=== PATIENT | male | born 1955 | race Caucasian/White ===

== ENCOUNTER 2017-03-09 07:25 | Inpatient (IN) | payer BC, OTHER ==
--- NOTE | 2017-02-24 12:38 | PAT Medication Instructions ---
Service Date Feb 24, 2017. Current Home Medication List Ergocalciferol (Vitamin D), 50,000 UNITS PO WK Fish Oil ([place]-3), 1 CAP PO QAM Olmesartan/Hctz (Benicar Hct 20/12.5), 1 TAB PO QAM Oyster Shell (Calcium), 1,000 MG PEG QAM Tamsulosin HCl (Tamsulosin HCl), 0.4 MG PO QAM Testosterone Cypionate (Testosterone Cypionate), 1 ML INJ [id number] Medication Instructions For Your Scheduled Surgery - Continue as directed: Ergocalciferol (Vitamin D), 50,000 UNITS PO WK Testosterone Cypionate (Testosterone Cypionate), 1 ML INJ [id number] - Hold the following medications starting 02/25/17: Fish Oil ([place]-3), 1 CAP PO QAM - Hold the following medications the morning of surgery: Tamsulosin HCl (Tamsulosin HCl), 0.4 MG PO QAM Olmesartan/Hctz (Benicar Hct 20/12.5), 1 TAB PO QAM Oyster Shell (Calcium), 1,000 MG PEG QAM If you have any questions please call us at [phone] or [phone] or [phone]
[2017-02-24 12:48] LABS: BASO % 0.5 %; BASO ABS # 0.03 K/uL (0-0.2); COMPLETE YES; EOS % 1.8 %; HEMATOCRIT 49.6 % (42-52); IG% 0.3 %; LYMPH % 26.7 %; LYMPH ABS # 1.63 K/uL (1.2-3.4); MEAN CORPUSCULAR HEMOGLOBIN 31.2 pg (25-34); MEAN CORPUSCULAR HGB CONC 35.1 g/dl (32-36); MEAN PLATELET VOLUME 10.4 fL (7.4-10.4); MONO % 7.5 %; NEUT % 63.2 %; PLATELET COUNT 180 K/uL (130-400); RED BLOOD COUNT 5.57 M/uL (4.7-6.1); WHITE BLOOD COUNT 6.11 K/uL (4.8-10.8)
[2017-02-24 13:03] LABS: URINE APPEARANCE CLEAR (CLEAR); URINE BILIRUBIN NEG (NEG); URINE COLOR YELLOW; URINE NITRITE NEG (NEG); URINE SPECIFIC GRAVITY 1.024 (1.000-1.030); UROBILINOGEN NEG (NEG)
--- NOTE | 2017-02-24 13:06 | DIAGNOSTIC IMAGING REPORT ---
CHEST 2 VIEWS ROUTINE HISTORY: Preop. COMPARISON: Chest 07/14/2014. FINDINGS: The lungs are clear. Cardiac silhouette is normal in size. No pleural effusions. No pneumothorax. IMPRESSION: No acute process. Electronically signed by: Marek Miguel M.D. 02/24/2017 1:05 PM Dictated Date/Time: 02/24/2017 1:03 PM
[2017-02-24 13:07] LABS: MANUAL MICROSCOPIC REQUIRED? NO; REVIEW REQ? NO
[2017-02-24 13:28] LABS: BUN/CREATININE RATIO 18.1 (10-20); CALCIUM 8.8 mg/dl (8.5-10.1); CREATININE 1.1 mg/dl (0.60-1.40); POTASSIUM 4.2 mmol/L (3.5-5.1)
[2017-03-09] VITALS (10 sets, daily range): BP systolic 106–154; BP diastolic 63–96; PULSE 63–98; TEMP 36.5–36.8; O2SAT 90–97; Ht 175.3 cm; Wt 90.5 kg
[~2017-03-09] VITALS: Ht 175.3 cm; Wt 90.5 kg
[~2017-03-09 07:25] MED LIST: BNC/20125 PO; CEFAZOLIN 2000 MG/60 ML D5W IV SCH; CeleBREX 200 MG CAP PO SCH; DUTA1CAP3 PO; FLM4 PO; LACTATED RINGER'S 1000ML 1,000 ML IV SCH; OMEG10007 PO; OYST500T47 PEG; PREGABALIN 75 MG CAP PO SCH; TEST1INJ2 INJ; VTMD PO
[2017-03-09] MEDS ORDERED: MIDAZOLAM HCL 1 MG/ML 2ML VIAL ONE (09:18)
[2017-03-09] MEDS ORDERED: FENTANYL CITRATE INJ 50 MCG/1 ML 2 ML VIAL ONE ×2 (09:19→10:25)
--- NOTE | 2017-03-09 09:44 | History & Physical Bridge Note ---
H&P Re-Evaluation Bridge Note: I have examined the patient, reviewed the History & Physical and in the interval since the performance of the History & Physical I have noted the following changes of clinical significance: No changes noted
[2017-03-09] MEDS ORDERED: THROMBIN FOR SOLN 20000 UNIT KIT ONE (09:46)
[2017-03-09] MEDS ORDERED: THROMBIN 5000 UNITS KIT ONE (09:46)
[2017-03-09] MEDS ORDERED: BACITRACIN 50000 UNIT VIAL ONE (09:46)
[2017-03-09] MEDS ORDERED: HEPARIN SOD (PORCINE) 1000 UNIT/ML 10 ML VIAL ONE ×2 (09:46→09:48)
[2017-03-09] MEDS ORDERED: BUPIVACAINE/EPINEPHRINE 0.5% MPF 1:200,000 10 ML VIAL ONE ×2 (09:48→09:50)
[2017-03-09] MEDS ORDERED: HYDROmorphone INJ 2 MG/ML SYR/VIAL ONE ×2 (10:25→11:27)
[2017-03-09] MEDS ORDERED: LABETALOL HCL IV 5 MG/ML 20ML IV PRN (10:45)
[2017-03-09] MEDS ORDERED: ONDANSETRON INJ 2 MG/ML 2 ML VIAL IV PRN ×2 (10:45→11:45)
[2017-03-09] MEDS ORDERED: HYDROmorphone INJ 2 MG/ML SYR/VIAL IV PRN (10:45)
[2017-03-09] MEDS ORDERED: ATROPINE SULFATE 0.1 MG/ML 5ML SYR IV PRN (10:45)
[2017-03-09] MEDS ORDERED: NEOSTIGMINE METHYLSULFATE 1 MG/ML 10ML VIAL ONE (11:27)
[2017-03-09] MEDS ORDERED: DEXAMETHASONE SOD INJ 4 MG/ML VIAL ONE (11:27)
[2017-03-09] MEDS ORDERED: GLYCOPYRROLATE INJ 0.2 MG/ML VIAL ONE (11:27)
[2017-03-09] MEDS ORDERED: ONDANSETRON INJ 2 MG/ML 2 ML VIAL ONE ×2 (11:27)
[2017-03-09] MEDS ORDERED: PROPOFOL IV EMULSION 10 MG/ML 20 ML VIAL IV ONE (11:27)
[2017-03-09] MEDS ORDERED: LIDOCAINE HCL 2% 2 ML VIAL (20MG/ML) ONE (11:27)
[2017-03-09] MEDS ORDERED: ROCURONIUM BROMIDE 10 MG/ML 5 ML VIAL ONE (11:27)
[2017-03-09] MEDS ORDERED: PHENYLEPHRINE 100MCG/ML 5ML SYR ONE (11:27)
[2017-03-09] MEDS ORDERED: KETOROLAC TROMETHAMINE 30 MG/ML VIAL ONE (11:28)
--- NOTE | 2017-03-09 11:30 | [facility] Post Operative Brief Note ---
Immediate Operative Summary Operative Date Mar 09, 2017. Pre-Operative Diagnosis lumbar stenosis Post-Operative Diagnosis same Procedure(s) Performed Removal of hardware L3; L2-L3 Decompression and Instrumented Fusion, connection at L3; Arteriocyte; Application of Bone Morphogenic Protein Surgeon Dr. Greenwood Branch Billing Payroll Clerk Surgeon(s) Von Mathur PA-C Estimated Blood Loss 300 ml Findings dict Specimens a. explanted hardware
[2017-03-09] MEDS ORDERED: SODIUM CHLORIDE 0.9% 1000ML 1,000 ML IV SCH (11:35)
--- NOTE | 2017-03-09 11:35 | [facility] Operative Report ---
Operative Report Operative Date Mar 09, 2017. Pre-Operative Diagnosis lumbar stenosis Post-Operative Diagnosis same Procedure(s) Performed 1. L2 laminectomy 2. L2 bilateral pedicle screw instrumentation with K2M EVEREST screws and cee application L2-3 bilateral 3. Posterolateral fusion L2-3 bilateral with INFUSE, BMA, local bone 4. Left iliac crest bone marrow aspiration 5. exploration of fusion mass bilateral L3-[address] Greenwood Automobile Relocation Engineer Surgeon(s) Von Mathur PA-C Estimated Blood Loss 300 ml Findings see below Specimens a. explanted hardware Anesthesia GETA Description of Procedure After identification of the patient and the operative level they were brought to the OR where they underwent induction of general anesthesia. They were positioned prone on a Michael spine table with all bony prominence well-padded. Care was taken to avoid pressure on the periorbital area. The lumbosacral area was sterilely prepped and draped in the usual fashion. Antibiotics were administered, a time-out was performed, level was confirmed, and skin incision was with localized lateral fluoroscopy and a spinal needle. The skin was infiltrated with half percent Marcaine with epinephrine. I then made skin incision from the spinous process of L2-4. The dorsal fascia was incised and posterior exposure was accomplished with dissection out to the tips of the transverse processes from L2-3 bilaterally. I then packed the gutters with thrombin-soaked sponges and used fluoroscopy to confirm the operative levels with markers at the operative levels. After identification of the appropriate level I placed Gelpi retractors and proceeded to perform midline decompression. Laminectomies of L2 were performed in the midline with takedown of the intervening ligamentum flavum. I then used an osteotome to remove the medial facets at L2-3. Facet hypertrophy and degenerative changes were noted at the operative levels. I then completed decompression with Kerrison rongeurs and palpated the nerve roots were adequately decompressed at the operative levels from L2-3 bilaterally. I palpated all nerve roots were decompressed adequately. I then obtained hemostasis of epidural bleeding with bipolar cautery and Surgiflo. I then proceeded to place pedicle screws bilaterally at L2 with bony anatomy confirmed to be intact with the ball-tipped feeler. I confirmed screw length, trajectory, and position with fluoroscopy. Bone graft consisted of morselized local bone from laminectomy bone as well as bone graft foreign language interpreter saturated with stem cell concentrate. I obtained stem cell concentrate using a stem cell concentration system after aspiration of bone marrow from the right iliac crest via a separate stab incisions with a Jamshidi needle. I then applied this to bone graft foreign language interpreter. I then lowered the Kilo frame to restore lordosis. I explored fusion and hardware bilaterally at L3-4 and confirmed fusion. I then removed the L3 medicrea screws on both sides then put connectors on rods bilaterally I then applied rods and end caps bilaterally with final tightening of all caps. I irrigated with bacitracin solution. I then decorticated the transverse processes bilaterally at the operative levels from L2-3 as well as facet joints with a high-speed bur. I then packed the lateral gutters and facets with the bone graft mixture consisting of: infuse BMP and a collagen sponge, tricalcium phosphate logs, stem cell concentrate, morcellized local bone, and bone graft foreign language interpreter. I then confirmed hemostasis and closed in a layered fashion over a RENARD drain. All sponge and needle counts were correct in the case. Please note my PA-C participated in all portions of the procedure and was critical for performance of the procedure by assisting in positioning, prepping, draping, suction, retraction, and wound closure. I attest to the content of the Intraoperative Record and any orders documented therein. Any exceptions are noted below.
--- NOTE | 2017-03-09 11:44 | DIAGNOSTIC IMAGING REPORT ---
Lumbar spine LUMBAR SPINE 2 OR 3 VIEW CLINICAL HISTORY: LUMBAR DECOMPRESSION/ FUSION POSSIBLE REMOVAL TECHNIQUE: Image intensifier COMPARISON STUDY: None FINDINGS: Image intensifier utilized for lumbar fusion/ReVision process IMPRESSION: Image intensifier utilized for lumbar fusion/ReVision procedure Electronically signed by: Ernesto Aquino M.D. 03/09/2017 11:43 AM Dictated Date/Time: 03/09/2017 11:42 AM
[2017-03-09] MEDS ORDERED: HYDROmorphone HCL 0.5MG/ML 50 ML CASSETTE IV PRN (11:45)
[2017-03-09] MEDS ORDERED: LORAZEPAM 0.5 MG TAB PO PRN (11:45)
[2017-03-09] MEDS ORDERED: PROMETHAZINE HCL INJ 12.5 MG in SODIUM CHLORIDE 0.9% 50ML 50 ML IV PRN (11:45)
[2017-03-09] MEDS ORDERED: MAGNESIUM HYDROXIDE SUSP 30 ML UDC PO PRN (11:45)
[2017-03-09] MEDS ORDERED: NALOXONE HCL 0.4 MG/1 ML VIAL/CARP IV PRN ×2 (11:45)
[2017-03-09] MEDS ORDERED: ACETAMINOPHEN 500 MG TAB PO PRN (11:45)
[2017-03-09] MEDS ORDERED: BISACODYL 10 MG SUPP PR PRN (11:45)
[2017-03-09] MEDS ORDERED: SOD PHOSPHATE/SOD BIPHOSPHATE ENEMA 132 ML BTL PR PRN (11:45)
[2017-03-09] MEDS ORDERED: FAMOTIDINE 20 MG TAB PO PRN (11:45)
[2017-03-09] MEDS ORDERED: ACETAMINOPHEN IV 100 ML IV PRN (11:45)
[2017-03-09] MEDS ORDERED: LORAZEPAM INJ 0.5 MG in SYRINGE 0 ML IV PRN (11:45)
[2017-03-09] MEDS ORDERED: hydrOXYzine HCL 25 MG TAB PO PRN (11:45)
[2017-03-09] MEDS ORDERED: METOCLOPRAMIDE HCL INJ 5 MG/ML 2 ML VIAL IV PRN (11:45)
[2017-03-09] MEDS ORDERED: ALUMINUM/MAGNESIUM SUSP 30 ML UDC PO PRN (11:45)
[2017-03-09] MEDS ORDERED: HYDROmorphone INJ 1 MG/ML SYR ONE ×2 (11:55→12:19)
[2017-03-09] MEDS ORDERED: HYDROmorphone HCL 0.5MG/ML 50 ML CASSETTE ONE (11:55)
[2017-03-09] MEDS ORDERED: ESMOLOL HCL 10 MG/ML 10 ML VIAL ONE (12:24)
[2017-03-09] MEDS: SODIUM CHLORIDE 0.9% 1000ML 1,000 ML IV SCH (15:01)
--- NOTE | 2017-03-09 15:08 | Anesthesiology Progress Note ---
Anesthesia Post Op Note Date & Time Mar 09, 2017 at 15:08 Vital Signs Pain Intensity: 4.0 Vital Signs Past 12 Hours Date Time Temp Pulse Resp B/P (MAP) Pulse Ox O2 Delivery O2 Flow Rate FiO2 03/09/17 14:43 36.6 98 18 149/81 (103) 94 Nasal Cannula 4.0 03/09/17 14:15 36.6 71 17 154/89 (110) 94 Nasal Cannula 4.0 03/09/17 13:57 95 Nasal Cannula 4.0 03/09/17 13:47 95 Nasal Cannula 4.0 03/09/17 13:44 36.7 87 16 146/78 (100) 95 Nasal Cannula 4.0 03/09/17 13:31 37.5 03/09/17 13:28 63 16 92 03/09/17 13:28 66 16 03/09/17 13:26 123/76 03/09/17 13:23 82 16 93 03/09/17 13:23 80 16 03/09/17 13:22 36.7 03/09/17 13:21 134/77 03/09/17 13:18 90 12 96 03/09/17 13:18 82 12 03/09/17 13:17 74 16 03/09/17 13:17 80 16 93 03/09/17 13:16 129/86 03/09/17 13:12 75 13 03/09/17 13:12 78 13 92 03/09/17 13:11 136/87 03/09/17 13:07 57 16 94 03/09/17 13:07 58 16 03/09/17 13:06 121/68 03/09/17 13:02 61 16 03/09/17 13:02 62 16 94 03/09/17 13:01 119/65 03/09/17 12:57 65 13 03/09/17 12:57 67 13 90 03/09/17 12:56 121/68 03/09/17 12:52 78 12 03/09/17 12:52 78 12 94 03/09/17 12:51 127/68 03/09/17 12:47 53 16 95 03/09/17 12:47 53 16 03/09/17 12:46 120/63 03/09/17 12:42 70 14 93 03/09/17 12:42 73 14 03/09/17 12:41 135/73 03/09/17 12:37 60 16 03/09/17 12:37 61 16 133/66 93 03/09/17 12:32 67 14 95 03/09/17 12:32 65 14 03/09/17 12:31 141/78 03/09/17 12:30 60 16 95 03/09/17 12:30 57 16 03/09/17 12:26 143/81 03/09/17 12:25 56 15 93 03/09/17 12:25 57 15 03/09/17 12:21 147/85 03/09/17 12:20 60 15 93 03/09/17 12:20 60 15 03/09/17 12:19 62 16 92 03/09/17 12:19 67 16 03/09/17 12:16 154/85 03/09/17 12:14 77 19 03/09/17 12:14 77 19 93 03/09/17 12:11 155/84 03/09/17 12:09 61 17 03/09/17 12:09 61 17 95 03/09/17 12:08 81 16 97 03/09/17 12:08 79 16 03/09/17 12:06 150/86 03/09/17 12:03 63 17 94 03/09/17 12:03 64 17 03/09/17 12:01 156/82 03/09/17 11:58 77 18 94 03/09/17 11:58 78 18 03/09/17 11:53 85 14 03/09/17 11:53 85 14 95 03/09/17 11:51 167/89 03/09/17 11:50 78 17 167/89 94 Mask 10 03/09/17 11:48 85 16 94 03/09/17 11:48 85 16 03/09/17 11:46 163/88 03/09/17 11:44 164/89 03/09/17 11:43 36.6 80 16 164/89 94 Mask 10 03/09/17 11:43 81 16 03/09/17 11:43 81 16 94 03/09/17 08:02 36.8 63 18 153/96 97 Room Air Notes Mental Status: alert / awake / arousable, participated in evaluation Pt Amnestic to Procedure: Yes Nausea / Vomiting: adequately controlled Pain: adequately controlled Airway Patency, RR, SpO2: stable & adequate BP & HR: stable & adequate Hydration State: stable & adequate Anesthetic Complications: no major complications apparent
[2017-03-09] MEDS: CEFAZOLIN IV 2,000 MG in DEXTROSE 5% 50ML 50 ML IV SCH (18:04)
[2017-03-09] MEDS: DEXAMETHASONE INJ 6 MG in SYRINGE 0 ML IV SCH (18:04)
[2017-03-09] MEDS: DOCUSATE SODIUM/SENNA 50/8.6MG TAB PO SCH (20:49)
[2017-03-10] VITALS (7 sets, daily range): BP systolic 107–146; BP diastolic 69–87; PULSE 67–97; TEMP 36.6–36.8; O2SAT 90–95
[2017-03-10] MEDS: DEXAMETHASONE INJ 6 MG in SYRINGE 0 ML IV SCH ×2 (01:31→09:55)
[2017-03-10] MEDS: CEFAZOLIN IV 2,000 MG in DEXTROSE 5% 50ML 50 ML IV SCH (01:31)
[2017-03-10] MEDS: SODIUM CHLORIDE 0.9% 1000ML 1,000 ML IV SCH ×2 (03:55→15:30)
[2017-03-10] MEDS ORDERED: DC PCA PRN (06:00)
[2017-03-10] MEDS ORDERED: HYDROmorphone INJ 0.5 MG/0.5 ML SYR IV PRN (06:00)
[2017-03-10] MEDS ORDERED: HYDROmorphone INJ 1 MG/ML SYR IV PRN (06:00)
[2017-03-10 06:58] LABS: COMPLETE YES; HEMATOCRIT 42.5 % (42-52); IG% 0.2 %; LYMPH % 6.9 %; LYMPH ABS # 0.75 K/uL (1.2-3.4); MEAN CELL VOLUME 87.8 fL (80-100); MEAN CORPUSCULAR HEMOGLOBIN 30.8 pg (25-34); MEAN CORPUSCULAR HGB CONC 35.1 g/dl (32-36); MEAN PLATELET VOLUME 10.6 fL (7.4-10.4); MONO % 1.9 %; PLATELET COUNT 148 K/uL (130-400); RED BLOOD COUNT 4.84 M/uL (4.7-6.1); WHITE BLOOD COUNT 10.92 K/uL (4.8-10.8)
[2017-03-10] MEDS ORDERED: COUGH DROP (SUGAR FREE) LOZ 24 LOZ/1 BOX ONE (07:26)
[2017-03-10 07:28] LABS: BUN/CREATININE RATIO 20.7 (10-20); CALCIUM 8.3 mg/dl (8.5-10.1); POTASSIUM 4.4 mmol/L (3.5-5.1)
[2017-03-10] MEDS ORDERED: NURSING VERBAL MED ORDER ONE (07:30)
[2017-03-10] MEDS ORDERED: COUGH DROP (SUGAR FREE) LOZ 24 LOZ/1 BOX PO PRN (07:30)
[2017-03-10] MEDS: OXYCODONE HCL IR 5 MG TAB (IMMEDIATE RELEASE) PO PRN ×3 (07:33→20:44)
[2017-03-10] MEDS: OLMESARTAN MEDOXOMIL 20 MG TAB PO SCH (07:34)
[2017-03-10] MEDS: TAMSULOSIN HCL 0.4 MG CAP PO SCH (07:35)
[2017-03-10] MEDS: HYDROCHLOROTHIAZIDE 25 MG TAB PO SCH (07:35)
--- NOTE | 2017-03-10 07:46 | Anesthesiology Progress Note ---
Anesthesia Post Op Note Date & Time Mar 10, 2017 at 07:46 Vital Signs Pain Intensity: 7.0 Vital Signs Past 12 Hours Date Time Temp Pulse Resp B/P (MAP) Pulse Ox O2 Delivery O2 Flow Rate FiO2 03/10/17 07:43 Room Air 03/10/17 07:08 36.7 80 19 146/74 (98) 92 Room Air 03/10/17 03:38 36.6 67 16 119/70 (86) 90 Room Air 03/09/17 23:36 36.6 88 20 106/63 (77) 94 Room Air Notes Mental Status: alert / awake / arousable, participated in evaluation Pt Amnestic to Procedure: Yes Nausea / Vomiting: adequately controlled Pain: adequately controlled Airway Patency, RR, SpO2: stable & adequate BP & HR: stable & adequate Hydration State: stable & adequate Anesthetic Complications: no major complications apparent
--- NOTE | 2017-03-10 08:56 | Discharge Summary ---
Orthopedic Discharge Summary Admission Date/Reason Mar 09, 2017 at 11:39 Lumbar Spinal Stenosis. Discharge Date/Disposition Mar 11, 2017 Home Diagnosis Principal Diagnosis: SAME Procedure(s) Performed LUMBAR FUSION Medication Reconciliation New Medications: Oxycodone HCl (Oxycodone HCl) 5 Mg Tab 5-10 MG PO Q4H PRN for Moderate - severe pain, #90 TAB Continued Medications: Dutasteride (Dutasteride) 0.5 Mg Cap 1 TAB PO QAM Ergocalciferol (Vitamin D) 50,000 Interunit Cap 13813 UNITS PO WK, #12 MONDAYS Fish Oil ([place]-3) 1 Ea Cap 1 CAP PO QAM, CAP Olmesartan/Hctz (Benicar Hct 20/12.5) Tab 1 TAB PO QAM, #90 Oyster Shell (Calcium) 500 Mg Tab 1000 MG PEG QAM Tamsulosin HCl (Tamsulosin HCl) 0.4 Mg Cap 0.4 MG PO QAM, #90 Testosterone Cypionate (Testosterone Cypionate) 200 Mg/Ml Inj 1 ML INJ [id number], #2 Admission Physical Exam As per Admitting History & Physical. Hospital Course The patient was admitted for elective lumbar fusion. They tolerated procedure well and were stable on the floor. They progressed with PT, had stable labs, HVC output decreased, pain was controlled, and bowel function returned. They were discharged in stable condition Discharge Instructions Please refer to the electronic Patient Visit Report (Discharge Instructions) for additional information.
--- NOTE | 2017-03-10 08:57 | Orthopedic Progress Note ---
Orthopedic Progress Note Date of Service Mar 10, 2017. Subjective Post OP Day: 1 Reports: feeling well, pain controlled w PO medications, Denies: complaints, chest pain, SOB, nausea / vomiting, light headedness, calf pain, using CNC MAINTENANCE MECHANIC Objective calves soft nontender, N/V intact, dressing C/D/I, A&O x3, hemovac drainage Date Time Temp Pulse Resp B/P (MAP) Pulse Ox O2 Delivery O2 Flow Rate FiO2 03/10/17 07:43 Room Air 03/10/17 07:08 36.7 80 19 146/74 (98) 92 Room Air 03/10/17 03:38 36.6 67 16 119/70 (86) 90 Room Air 03/09/17 23:36 36.6 88 20 106/63 (77) 94 Room Air 03/09/17 19:30 Room Air 03/09/17 19:26 36.5 67 16 133/75 (94) 90 Room Air 03/09/17 18:00 91 Nasal Cannula 2.0 03/09/17 15:50 Nasal Cannula 4.0 03/09/17 15:44 36.7 84 13 144/74 (97) 95 Nasal Cannula 4.0 03/09/17 14:43 36.6 98 18 149/81 (103) 94 Nasal Cannula 4.0 03/09/17 14:15 36.6 71 17 154/89 (110) 94 Nasal Cannula 4.0 03/09/17 13:57 95 Nasal Cannula 4.0 03/09/17 13:47 95 Nasal Cannula 4.0 03/09/17 13:44 36.7 87 16 146/78 (100) 95 Nasal Cannula 4.0 03/09/17 13:31 37.5 03/09/17 13:28 63 16 92 03/09/17 13:28 66 16 03/09/17 13:26 123/76 03/09/17 13:23 82 16 93 03/09/17 13:23 80 16 03/09/17 13:22 36.7 03/09/17 13:21 134/77 03/09/17 13:18 90 12 96 03/09/17 13:18 82 12 03/09/17 13:17 74 16 03/09/17 13:17 80 16 93 03/09/17 13:16 129/86 03/09/17 13:12 75 13 03/09/17 13:12 78 13 92 03/09/17 13:11 136/87 03/09/17 13:07 57 16 94 03/09/17 13:07 58 16 03/09/17 13:06 121/68 03/09/17 13:02 61 16 03/09/17 13:02 62 16 94 03/09/17 13:01 119/65 03/09/17 12:57 65 13 03/09/17 12:57 67 13 90 03/09/17 12:56 121/68 03/09/17 12:52 78 12 03/09/17 12:52 78 12 94 03/09/17 12:51 127/68 03/09/17 12:47 53 16 95 03/09/17 12:47 53 16 03/09/17 12:46 120/63 03/09/17 12:42 70 14 93 03/09/17 12:42 73 14 03/09/17 12:41 135/73 03/09/17 12:37 60 16 03/09/17 12:37 61 16 133/66 93 03/09/17 12:32 67 14 95 03/09/17 12:32 65 14 03/09/17 12:31 141/78 03/09/17 12:30 60 16 95 03/09/17 12:30 57 16 03/09/17 12:26 143/81 03/09/17 12:25 56 15 93 03/09/17 12:25 57 15 03/09/17 12:21 147/85 03/09/17 12:20 60 15 93 03/09/17 12:20 60 15 03/09/17 12:19 62 16 92 03/09/17 12:19 67 16 03/09/17 12:16 154/85 03/09/17 12:14 77 19 03/09/17 12:14 77 19 93 03/09/17 12:11 155/84 03/09/17 12:09 61 17 03/09/17 12:09 61 17 95 03/09/17 12:08 81 16 97 03/09/17 12:08 79 16 03/09/17 12:06 150/86 03/09/17 12:03 63 17 94 03/09/17 12:03 64 17 03/09/17 12:01 156/82 03/09/17 11:58 77 18 94 03/09/17 11:58 78 18 03/09/17 11:53 85 14 03/09/17 11:53 85 14 95 03/09/17 11:51 167/89 03/09/17 11:50 78 17 167/89 94 Mask 10 03/09/17 11:48 85 16 94 03/09/17 11:48 85 16 03/09/17 11:46 163/88 03/09/17 11:44 164/89 03/09/17 11:43 36.6 80 16 164/89 94 Mask 10 03/09/17 11:43 81 16 03/09/17 11:43 81 16 94 Laboratory Results 24 Hours: Test 03/10/17 06:02 White Blood Count 10.92 K/uL Red Blood Count 4.84 M/uL Hemoglobin 14.9 g/dL Hematocrit 42.5 % Mean Corpuscular Volume 87.8 fL Mean Corpuscular Hemoglobin 30.8 pg Mean Corpuscular Hemoglobin Concent 35.1 g/dl Platelet Count 148 K/uL Mean Platelet Volume 10.6 fL Neutrophils (%) (Auto) 91.0 % Lymphocytes (%) (Auto) 6.9 % Monocytes (%) (Auto) 1.9 % Eosinophils (%) (Auto) 0.0 % Basophils (%) (Auto) 0.0 % Neutrophils # (Auto) 9.94 K/uL Lymphocytes # (Auto) 0.75 K/uL Monocytes # (Auto) 0.21 K/uL Eosinophils # (Auto) 0.00 K/uL Basophils # (Auto) 0.00 K/uL Assessment & Plan Assessment: stable...preop symptoms improved Plan: PT, scds, drain, d/c monday?
[2017-03-10] MEDS: DOCUSATE SODIUM/SENNA 50/8.6MG TAB PO SCH (21:19)
[2017-03-11] MEDS ORDERED: NURSING DECISION MEDICATION ORDER SCH (03:45)
[2017-03-11 05:55] VITALS: BP 134/77; PULSE 58; TEMP 36.6; O2SAT 95
[2017-03-11] MEDS: POLYETHYLENE (MIRALAX) 17 GM PACK PO SCH ×2 (05:57→12:06)
[2017-03-11] MEDS: OXYCODONE HCL IR 5 MG TAB (IMMEDIATE RELEASE) PO PRN ×2 (05:58→12:09)
[2017-03-11] MEDS: HYDROCHLOROTHIAZIDE 25 MG TAB PO SCH (07:21)
[2017-03-11] MEDS: OLMESARTAN MEDOXOMIL 20 MG TAB PO SCH (07:21)
[2017-03-11] MEDS: TAMSULOSIN HCL 0.4 MG CAP PO SCH (07:22)
[2017-03-11 08:49] VITALS: BP 121/69; PULSE 70; O2SAT 94
[2017-03-11] MEDS ORDERED: RXC5 PO (11:41)
--- NOTE | 2017-03-11 11:42 | Discharge Instructions ---
Discharge Instructions Date of Service Mar 11, 2017. Admission Reason for Admission: Lumbar Spinal Stenosis Discharge Discharge Diagnosis / Problem: same Discharge Goals Goal(s): Decrease discomfort Activity Recommendations Activity Limitations: per Instructions/Follow-up section . Instructions / Follow-Up Instructions / Follow-Up ACTIVITY RECOMMENDATIONS: SELF CARE INSTRUCTIONS AFTER THORACIC/LUMBAR FUSIONS 1. You may walk to your tolerance. It is good exercise for your legs and back. Expect some back and intermittent leg aches and pains. 2. You may perform "counter-top" level activities (make a sandwich, isaura with a project, etc.). 3. No bending or lifting of more than 10 pounds or back twisting of any nature (roll like a log when turning in bed). 4. You may ride in a car for 20-30 minutes at a time. No driving until after your first visit with your doctor. 5. Frequent changes of position and restricting sitting to 30 minutes at a time will help limit the amount of back spasms and stiffness you may experience. 6. You may discontinue the use of ambulatory aids (cane, crutches, etc.) once your strength and confidence allow. 7. You may photographic engineer the shower and let water strike your incision when you arrive home at least once daily. Do not take a tub bath, sit in a hot tub or go into a swimming pool until after your first recheck in the office. SPECIAL CARE INSTRUCTIONS: VERY IMPORTANT TO READ AND REVIEW 2. You may keep the wound open to air as much as possible to promote healing after post-op day number 5 unless told otherwise by your doctor. 3. If you think the wound looks like it is becoming infected (redness or worsening drainage) and/or you are experiencing fever, chill or worsening back pain and muscle spasms, contact the office so that we may evaluate you as soon as possible. B. Complications are uncommon, but please contact us if you have any signs or symptoms of: 1. wound infection (fever higher than 102.5 degrees F, redness, separation of wound, drainage, or increasing pain from the incision) 2. blood clots in legs (pain, swelling, redness and warmth in legs) 3. urinary tract infection (fever higher than 102.5 degrees F, burning upon urination or increased frequency of urination) 4. nerve problems (inability to walk on your toes or heels, numbness, loss of bowel or bladder control) 5. any other symptoms that concern you C. Please call the office at if you have any concerns or questions about your operation or recovery. D. No smoking! Smoking drastically decreases the chance of a solid fusion. MANAGING PAIN AFTER SPINAL SURGERY 1. Narcotic medication is intended for short-term use and will be provided for surgical pain. Surgical pain usually lasts for a period of 4-6 weeks. Narcotic medication includes Percocet, Vicodin, Darvocet, Tylenol #3 or Lortab. 2. Longer-term pain is more appropriately treated with non-narcotic medication such as Tylenol ES. 3. Muscle spasm is not appropriately treated with narcotics. Muscle relaxers such as Soma, Flexeril or Skelaxin can be used along with Tylenol ES. 4. Remember that we all live with some "aches and pains". This is not unusual or uncommon after an injury or as we get older. a. Back pain is expected and may include muscle spasms for 4 to 6 weeks after surgery. The pain should gradually improve. If the pain worsens for no apparent reason, please contact the office. b. Intermittent leg pain may also be experienced and should not be concerned about unless it worsens for no apparent reason. If so, please contact the office. 5. We will provide appropriate medication within the normal guidelines of their prescribed use. We will also be very cautious and aware of potential abuse and extended duration of patients' medication needs. a. Pain medications are for your comfort and to assist with sleep and rest so that the tissue can heal. They are not provided in order to return to normal activity and should not be used through the day. To do so or worsening pain at night can result from ongoing tissue damage and development of tolerance to the prescribed medicine. 6. Please allow 2-3 days to process refills. Prescriptions will not be mailed but must be picked up at the office. FOLLOW UP VISIT: Keep your scheduled follow-up appointment. Any questions, please call the office at . Current Hospital Diet Patient's current hospital diet: Regular Diet Discharge Diet Recommended Diet: Regular Diet Procedures Procedures Performed: 1. L2 laminectomy 2. L2 bilateral pedicle screw instrumentation with K2M EVEREST screws and cee application L2-3 bilateral 3. Posterolateral fusion L2-3 bilateral with INFUSE, BMA, local bone 4. Left iliac crest bone marrow aspiration 5. exploration of fusion mass bilateral L3-4 Pending Studies Studies pending at discharge: no Medical Emergencies . Who to Call and When: Medical Emergencies: If at any time you feel your situation is an emergency, please call 911 immediately. . Non-Emergent Contact Non-Emergency issues call your: Urologist . "Provider Documentation" section prepared by Oksar Greenwood. . VTE Core Measure Inpt VTE Proph given/why not?: [facility] [place] Search Results: patient reviewed within database, no issues identified ( reviewed by PAC)
[2017-03-11 12:41] VITALS: BP 121/69; PULSE 70; TEMP 36.6; O2SAT 94
== END 2017-03-11 14:30 | disposition home or self-care (01) | DRG 460 ==
LOC: C.ACU 07:25 → C.3E 11:39 → ENRESERV 12:25
PROVIDERS: ADMIT Orthopaedic Surgery Orthopaedic Surgery of the Spine; ATTEND Orthopaedic Surgery Orthopaedic Surgery of the Spine
PROC: 0QB00ZZ Excision of Lumbar Vertebra, Open Approach (ICD-10-PCS; principal; 2017-03-09 10:00)
PROC: 0SJ00ZZ Inspection of Lumbar Vertebral Joint, Open Approach (ICD-10-PCS; principal; 2017-03-09 10:00)
PROC: 0QB20ZZ Excision of Right Pelvic Bone, Open Approach (ICD-10-PCS; principal; 2017-03-09 10:00)
PROC: 0SG0071 Fusion of Lumbar Vertebral Joint with Autologous Tissue Substitute, Posterior Approach, Posterior Column, Open Approach (ICD-10-PCS; principal; 2017-03-09 10:00)
DX: M48.06 Spinal stenosis, lumbar region (principal); I10 Essential (primary) hypertension; N40.0 Benign prostatic hyperplasia without lower urinary tract symptoms; M81.0 Age-related osteoporosis without current pathological fracture; Z79.899 Other long term (current) drug therapy; Z98.1 Arthrodesis status